=== PATIENT | male | born 1995 | race Caucasian/White ===

== ENCOUNTER 2021-12-01 12:17 | Inpatient (IN) | payer MEDICAID, SELFPAY ==
[2021-12-01 12:17] VITALS: BP 125/80; PULSE 92; RESP 18; TEMP 36.8; O2SAT 96
[2021-12-01 12:19] VITALS: BMI 36.1
[2021-12-01] MEDS: nicotine 2 mg Gum BUCCAL (13:06)
[2021-12-01] MEDS: OLANZapine 5 mg ODT PO ×2 (13:06→17:20)
[2021-12-01 14:00] VITALS: BP 124/82; PULSE 88; RESP 17; TEMP 36.6; O2SAT 97
[2021-12-01] MEDS: lithium carbonate ER 450 mg Tablet PO (18:23)
[2021-12-01] MEDS: divalproex DR 250 mg Tablet 750 MG PO (18:23)
[2021-12-01 19:56] VITALS: BP 105/68; PULSE 84; RESP 16; TEMP 36.8; O2SAT 96
[2021-12-01] MEDS: trazodone 50 mg Tablet PO (20:13)
[2021-12-01] MEDS: risperiDONE 2 mg Tablet PO (20:14)
[2021-12-01] MEDS: propranolol 20 mg Tablet 10 MG PO (20:14)
[2021-12-02 06:00] VITALS: BP 99/64; PULSE 71; RESP 16; TEMP 36.5; O2SAT 97
[2021-12-02] MEDS: divalproex DR 250 mg Tablet 750 MG PO ×2 (08:53→18:17)
[2021-12-02] MEDS: buPROPion XL (24 HR) 150 mg Tablet 450 MG PO (08:53)
[2021-12-02] MEDS: nicotine 2 mg Gum BUCCAL ×2 (08:53→14:06)
[2021-12-02] MEDS: lithium carbonate ER 450 mg Tablet PO ×2 (08:53→18:17)
[2021-12-02] MEDS: risperiDONE 2 mg Tablet PO (08:54)
[2021-12-02] MEDS: propranolol 20 mg Tablet 10 MG PO ×3 (08:54→20:16)
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
[2021-12-02 14:00] VITALS: BP 129/88; PULSE 94; RESP 18; TEMP 36.7; O2SAT 97
[2021-12-02] MEDS: OLANZapine 5 mg ODT PO (14:06)
[2021-12-02] MEDS: risperiDONE 2 mg Tablet 5 MG PO (20:16)
[2021-12-02] MEDS: trazodone 50 mg Tablet 100 MG PO (20:18)
[2021-12-02 21:41] VITALS: BP 129/88; RESP 18; TEMP 36.8; O2SAT 97
[2021-12-03] MEDS: hyDROXYzine 25 mg Capsule 50 MG PO (00:14)
[2021-12-03] MEDS: risperiDONE 2 mg Tablet PO (05:44)
[2021-12-03 06:00] VITALS: BP 90/59; PULSE 70; RESP 16; TEMP 36.8; O2SAT 97
[2021-12-03 08:01] LABS: Lithium 0.6 mmol/L (0.6-1.2)
[2021-12-03] MEDS: lithium carbonate ER 450 mg Tablet PO (09:51)
[2021-12-03] MEDS: divalproex DR 250 mg Tablet 750 MG PO (09:51)
[2021-12-03] MEDS: buPROPion XL (24 HR) 150 mg Tablet 450 MG PO (09:51)
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
[2021-12-03 14:00] VITALS: RESP 18
[2021-12-03 15:13] VITALS: RESP 18
[2021-12-03 15:15] VITALS: BP 101/60; PULSE 72
--- NOTE | 2021-12-06 13:08 | PC.NURSE ---
Pharmacy called for verification of patient discharge medications. Trazadone 100 mg po at bedtime. Resperidone 4 mg oral at bedtime called to [facility] pharmacy.
== END 2021-12-03 15:15 | disposition home or self-care (01) | DRG 885 ==
PROVIDERS: Psychiatry & Neurology Psychiatry; Admitting Provider Psychiatry & Neurology Psychiatry; Visit Provider Psychiatry & Neurology Psychiatry
DX: F31.9 Bipolar disorder, unspecified (principal); R45.851 Suicidal ideations; F12.90 Cannabis use, unspecified, uncomplicated; F10.10 Alcohol abuse, uncomplicated; F41.9 Anxiety disorder, unspecified; F79 Unspecified intellectual disabilities
CPT/HCPCS: 80178; 97150; 97165